=== PATIENT | male | born 1970 ===

== ENCOUNTER 2017-01-29 11:26 | Emergency (ER) | payer MEDICAID ==
[~2017-01-29] VITALS: Ht 180.3 cm; Wt 81.6 kg
[2017-01-29] MEDS ORDERED: SULF1TAB48 PO (11:46)
--- NOTE | 2017-01-29 12:23 | NUR ---
pt in room, requesting some gauze to cover the wounds at this time, 4x4s provided.
== END 2017-01-29 12:37 | disposition left against medical advice (07) ==
LOC: ER 11:33
DX: Z53.21 Procedure and treatment not carried out due to patient leaving prior to being seen by health care provider (principal)
CPT/HCPCS: A4663